=== PATIENT | female | born 1975 | race Two or more races ===

== ENCOUNTER 2017-10-20 19:26 | Inpatient (IN) | payer OTHER ==
[~2017-10-20] VITALS: Ht 154.9 cm; Wt 90.7 kg
[~2017-10-20 19:26] MED LIST: ALBUTEROL2.5 MG/0.5 IH; BUSPAR; GILTUSS LIQUID237 M1 PO; LEVAQUIN750 MG PO; MEDROL4 MG PO; NEURONTIN800 MG; PROMETHAZINE W473 ML PO; PROVENTIL3 ML/2.5 M IH; PULMICORT1 MG/2 ML IH; ULTRACET PO
[2017-10-20] MEDS ORDERED: CLONAZEPAM2 MG (19:46)
== END 2017-11-03 18:48 | disposition home or self-care (01) | DRG 202 ==
LOC: ER 19:26 → SEC-K 10-21 10:12 → MEDJ 10-21 10:12 → MEDI 10-27 14:09
PROC: 3E0F7GC Introduction of Other Therapeutic Substance into Respiratory Tract, Via Natural or Artificial Opening (ICD-10-PCS; principal; 2017-10-21)
PROC: BW24ZZZ Computerized Tomography (CT Scan) of Chest and Abdomen (ICD-10-PCS; 2017-10-23)
DX: J45.42 Moderate persistent asthma with status asthmaticus (principal); J44.1 Chronic obstructive pulmonary disease with (acute) exacerbation; J44.0 Chronic obstructive pulmonary disease with (acute) lower respiratory infection; J20.9 Acute bronchitis, unspecified; F17.210 Nicotine dependence, cigarettes, uncomplicated; M79.7 Fibromyalgia; F32.89 Other specified depressive episodes; K52.89 Other specified noninfective gastroenteritis and colitis; K59.09 Other constipation; M94.0 Chondrocostal junction syndrome [Tietze]; G43.809 Other migraine, not intractable, without status migrainosus

== ENCOUNTER 2019-04-27 10:35 | Emergency (ER) | payer OTHER ==
[~2019-04-27] VITALS: Ht 289.6 cm; Wt 97.5 kg
[~2019-04-27 10:35] MED LIST changes: +CLONAZEPAM2 MG
== END 2019-04-27 12:24 | disposition home or self-care (01) ==
LOC: ER 10:35
DX: M94.0 Chondrocostal junction syndrome [Tietze] (principal)